=== PATIENT | male | born 1995 | race Caucasian/White ===

== ENCOUNTER 2023-02-13 14:23 | Emergency (ER) | payer MEDICAID, OTHER ==
[~2023-02-13] VITALS: Ht 182.9 cm; Wt 72.6 kg
[2023-02-13 14:30] VITALS: BP 140/76; PULSE 76; RESP 16; O2SAT 98
[2023-02-13] MEDS ORDERED: METH4TAB3 PO (16:49)
== END 2023-02-13 17:35 | disposition home or self-care (01) ==
LOC: EDH 14:23
DX: S93.491A Sprain of other ligament of right ankle, initial encounter (principal); X58.XXXA Exposure to other specified factors, initial encounter; Y93.89 Activity, other specified; Y92.89 Other specified places as the place of occurrence of the external cause; Y99.8 Other external cause status
CPT/HCPCS: 29515; 73600; 73630